=== PATIENT | female | born 1950 | race Caucasian/White ===

== ENCOUNTER 2017-04-13 20:18 | Emergency (ER) | payer OTHER ==
[~2017-04-13] VITALS: Ht 160 cm; Wt 108.9 kg
--- NOTE | ~2017-04-13 | EKG ---
[place] [address] [facility] [place] [address] ELECTROCARDIOGRAM REPORT Name: CHERYLE JIMENEZ Room #: [facility] [id number] Admission: 04/13/17 Attend Phys: Discharge: 04/13/17 Date of : 54 Report #: [id number] THIS REPORT FOR: //name// [facility] ED Test Date: 2017-04-13 Test Time: 20:39:32 Pat Name: CHERYLE JIMENEZ Department: Room: Gender: F [employer] Supervisor: WYATT : 1950 Requested By: Alfonso Dugan Order Number: [id number] MD: Craig Dumont Measurements Intervals [place] Rate: 68 P: 56 ID: [id number] QRS: 24 QRSD: 103 T: 28 QT: 390 QTc: 415 Interpretive Statements Sinus rhythm Low voltage, precordial leads Borderline T abnormalities, anterior leads No previous ECG available for comparison Electronically Signed On 04-14-2017 8:29:11 [employer] by Craig Dumont [email or web address] <ELECTRONICALLY SIGNED> By: Craig Dumont MD 04/14/17 0829 2039 38 Craig Dumont MD /KE[place]
[2017-04-13] MEDS ORDERED: DIOVAN320 MG PO (21:02)
[2017-04-13] MEDS ORDERED: LOTREL 10-20 M1 EACH PO (21:02)
[2017-04-13] MEDS ORDERED: ATORVASTATIN CA40 MG PO (21:03)
[2017-04-13] MEDS ORDERED: POTASSIUM CHLOR8 ME2 (21:03)
[2017-04-13] MEDS ORDERED: TOPROL XL100 MG PO (21:03)
[2017-04-13] MEDS ORDERED: LOW DOSE ASPIRI81 M1 PO (21:04)
[2017-04-13 21:05] LABS: ABSOLUTE NEUTROPHILS 6.8 thou/uL (1.4-8.2); BASOPHILS 0.3 % (0.0-2.0); EOSINOPHILS 2.5 % (0.0-3.0); HEMATOCRIT 37.4 % (37.0-47.0); HEMOGLOBIN 12.7 gm/dL (12.0-15.0); LYMPHOCYTES 25.4 % (24.0-44.0); MCH 28.5 pg (26.0-34.0); MCV 83.7 fL (80.0-100.0); MONOCYTES 7.3 % (1.0-8.0); PLATELET COUNT 251 thou/uL (150-400); POLYS 64.5 % (36.0-66.0); RBC 4.47 mil/uL (4.20-5.00); RDW 13.8 % (10.5-14.5); WBC 10.5 thou/uL (4.0-11.0)
[2017-04-13 21:12] LABS: CALCIUM 9.2 mg/dL (8.5-10.1); CREATININE 1.2 mg/dL (0.6-1.0); POTASSIUM 3.4 mmol/L (3.5-5.1)
== END 2017-04-13 22:10 | disposition home or self-care (01) ==
LOC: ER 20:18
PROVIDERS: Physician Assistant
DX: R00.2 Palpitations (principal); I10 Essential (primary) hypertension; Z90.710 Acquired absence of both cervix and uterus

== ENCOUNTER → 2018-02-21 | Outpatient (CLI) | payer OTHER ==
[~2018-02-21] MED LIST: ATORVASTATIN CA40 MG PO; DIOVAN320 MG PO; LOTREL 10-20 M1 EACH PO; LOW DOSE ASPIRI81 M1 PO; POTASSIUM CHLOR8 ME2; TOPROL XL100 MG PO
== END ==
LOC: RAD 01:55
DX: Z12.31 Encounter for screening mammogram for malignant neoplasm of breast (principal)

== ENCOUNTER → 2019-02-24 | Outpatient (CLI) | payer OTHER | LOC: RAD 02:27 | DX: Z12.31 Encounter for screening mammogram for malignant neoplasm of breast (principal) ==

== ENCOUNTER → 2020-03-08 | Outpatient (CLI) | payer OTHER | LOC: BC 08:09 | PROVIDERS: ATTEND Internal Medicine | DX: Z12.31 Encounter for screening mammogram for malignant neoplasm of breast (principal) ==

== ENCOUNTER → 2021-03-10 | Outpatient (CLI) | payer OTHER | LOC: BC 08:59 | DX: Z12.31 Encounter for screening mammogram for malignant neoplasm of breast (principal) ==